=== PATIENT | male | born 1995 ===

== ENCOUNTER 2018-02-26 08:07 | Emergency (ER) | payer MEDICAID ==
[2018-02-26 08:13] VITALS: BP 123/83; PULSE 101; RESP 16; TEMP 101.5; O2SAT 98
[2018-02-26 08:14] VITALS: BMI 39.9
--- NOTE | 2018-02-26 08:29 | ED PDOC ---
History of Present Illness History of Present Illness: 23 y/o male with history of asthma presents to ER for evaluation of fever, bodyaches, cough and vomiting associated with left flank pain onset yesterday. Patient denies diarrhea or dysuria. PMD: Jannet Alegria HPI: Influenza Time Seen by Provider: 02/26/18 08:10 Chief Complaint: Flu-like Symptoms Chief Complaint (Provider): Flu-like Symptoms History Per: Patient Exam Limitations: no limitations Onset/Duration Of Symptoms: Days (x1) Symptoms include: fever, bodyaches, cough, vomiting. denies: diarrhea, other (Dysuria) Past Medical History Reviewed: Historical Data, Nursing Documentation Vital Signs: Last Vital Signs Temp 101.5 F H 02/26/18 08:13 Pulse 101 H 02/26/18 08:13 Resp 16 02/26/18 08:13 BP 123/83 02/26/18 08:13 Pulse Ox 98 02/26/18 08:13 JULIA Report Viewed: Yes - Medical History PMH: Asthma, Fractures (broken jaw 6 years [employer]) - Surgical History Surgical History: Tonsillectomy - Family History Family History: States: Unknown Family Hx - Social History Current smoker - smoking cessation education provided: Yes Alcohol: Social Drugs: Cannabis - Home Medications Home Medications: Ambulatory Orders Medication Instructions Recorded Albuterol HFA [Ventolin HFA 90 2 puff IH [id number] PRN #1 puff 01/29/15 mcg/actuation (8 g)] Methylprednisolone [Medrol Dose 4 mg PO DAILY #21 mg 01/29/15 Pack (21 tabs)] Cyclobenzaprine [Flexeril] 5 mg PO Q8H #20 tab 03/26/15 Ibuprofen [Motrin] 600 mg PO Q6 PRN #15 tab 03/26/15 Benzonatate [Tessalon Perle] 100 mg PO TID #12 capsule 02/26/18 Oseltamivir Cap [Tamiflu] 75 mg PO BID #10 cap 02/26/18 - Allergies Allergies/Adverse Reactions: Allergies Allergy/AdvReac Type Severity Reaction Status Date / Time No Known Allergies Allergy Verified 03/23/16 17:26 Review of Systems ROS Statement: Except As Marked, All Systems Reviewed And Found Negative Constitutional: Positive for: Fever Respiratory: Positive for: Cough Gastrointestinal: Positive for: Vomiting. Negative for: Diarrhea Genitourinary Male: Negative for: Dysuria Physical Exam - Reviewed Nursing Documentation Reviewed: Yes Vital Signs Reviewed: Yes - Physical Exam Appears: Positive for: Non-toxic, No Acute Distress Head Exam: Positive for: ATRAUMATIC, NORMOCEPHALIC Skin: Positive for: Normal Color, Warm, Dry Eye Exam: Positive for: Normal appearance, EOMI, PERRL ENT: Positive for: Normal ENT Inspection Neck: Positive for: Normal, Painless ROM, Supple Cardiovascular/Chest: Positive for: Regular Rate, Rhythm. Negative for: Murmur Respiratory: Positive for: Wheezing (mild expiratory). Negative for: Respiratory Distress Gastrointestinal/Abdominal: Positive for: Normal Exam, Soft. Negative for: Tenderness Back: Positive for: Normal Inspection. Negative for: L CVA Tenderness, R CVA Tenderness Extremity: Positive for: Normal ROM. Negative for: Pedal Edema, Deformity Neurologic/Psych: Positive for: Alert, Oriented (x3) Medical Decision Making Medical Decision Making: Time: 826 Initial impression: --Symptoms most likely represent flu --Given mild expiratory wheezing will order CXR and UA Scribe Attestation: Documented by Angeline Dempsey, acting as a scribe for Laron Borden MD. Provider Scribe Attestation: All medical record entries made by the Scribe were at my direction and personally dictated by me. I have reviewed the chart and agree that the record accurately reflects my personal performance of the history, physical exam, medical decision making, and the department course for this patient. I have also personally directed, reviewed, and agree with the discharge instructions and disposition. - ECG O2 Sat by Pulse Oximetry: 98 (RA) Pulse Ox Interpretation: Normal Disposition - Clinical Impression Clinical Impression: Influenza - Patient ED Disposition Is Patient to be Admitted: No Counseled Patient/Family Regarding: Studies Performed, Diagnosis, Need For Fo llowup, Rx Given - Disposition Referrals: Jannet Alegria MD [Primary Care Provider] - Disposition: Routine/Home Disposition Time: 09:03 Condition: FAIR Prescriptions: Benzonatate [Tessalon Perle] 100 mg PO TID #12 capsule Oseltamivir Cap [Tamiflu] 75 mg PO BID #10 cap Instructions: Flu Forms: [facility] ([place])
--- NOTE | 2018-02-26 13:43 | RAD ---
Date of service: 02/26/2018 HISTORY: cough COMPARISON: Comparison chest 01/29/2015 TECHNIQUE: Chest PA and lateral FINDINGS: LUNGS: No active pulmonary disease. PLEURA: No significant pleural effusion identified. No pneumothorax apparent. CARDIOVASCULAR: No aortic atherosclerotic calcification present. Normal cardiac size. No pulmonary vascular congestion. OSSEOUS STRUCTURES: No significant abnormalities. VISUALIZED UPPER ABDOMEN: Normal. OTHER FINDINGS: None. IMPRESSION: No active disease.
== END 2018-02-26 09:15 | disposition home or self-care (01) ==
LOC: SUPCPDRO 08:07 → H.ER 08:07
DX: J11.1 Influenza due to unidentified influenza virus with other respiratory manifestations (principal)